=== PATIENT | male | born 1990 | race Caucasian/White ===

== ENCOUNTER → 2017-08-10 | Outpatient (CLI) | payer OTHER ==
--- NOTE | 2017-08-10 11:32 | FL ---
ESOPHOGRAM. HISTORY: Dysphagia Esophagram was performed per the air contrast technique. The patient swallowed barium and effervesce nt crystals without difficulty or delay. Esophageal peristalsis and motility appear to be within normal limits. There is no evidence for filling defect, mass or diverticulum. Very small reducible hiatal hernia noted. Subsequently single contrast cervical esophagram was performed which fails demonstrate evidence for a spiration penetration or mass. IMPRESSION: Very small reducible hiatal hernia noted.
== END | disposition home or self-care (01) ==
LOC: RADFLMAIN 08:19
PROVIDERS: ATTEND Family Medicine
DX: K44.9 Diaphragmatic hernia without obstruction or gangrene (principal)
CPT/HCPCS: 74220

== ENCOUNTER 2017-11-21 22:01 | Emergency (ER) | payer OTHER ==
[2017-11-21] MEDS ORDERED: METOCLOPRAMIDE 5 MG/ML 2 ML VIAL IVP STA (22:32)
[2017-11-21] MEDS ORDERED: GLUCAGON 1 MG/ML VIAL IVP STA (22:32)
--- NOTE | 2017-11-21 22:44 | ED ---
ENT HPI - General Source: patient, RN notes reviewed Mode of arrival: ambulatory Limitations: no limitations <Jessica Sanchez - Last Filed: 11/22/17 00:43> <Aida Ness - Last Filed: 11/22/17 03:28> - General Chief complaint: ENT Stated complaint: throat problems/hernia/trouble swallowing Time Seen by Provider: 11/21/17 22:24 - History of Present Illness Initial comments: This is a 27-year-old male who presents to the emergency department with chief complaint of esophageal food impaction. Patient states that 2-1/2 hours ago he was eating pork chops. He states that the meat became lodged in his esophagus. Patient states that this has happened multiple times since the age of 13. He states that he has been dry heaving and did bring up half of the pork chop. He denies fevers or chills, chest pain or shortness of breath, abdominal pain, diarrhea. (Jessica Sanchez) - Related Data Home Medications Medication Instructions Recorded Confirmed Albuterol Sulfate [Ventolin HFA] 2 puff INHALATION RT-QID PRN 04/14/14 11/21/17 Mometasone/Formoterol [Dulera 100 2 puff INHALATION RT-BID 06/12/15 11/21/17 Mcg/5 Mcg Inhaler] Baclofen 10 mg PO BID PRN 11/21/17 11/21/17 Cetirizine HCl [Zyrtec] 10 mg PO DAILY PRN 11/21/17 11/21/17 Loratadine [Claritin] 10 mg PO DAILY 11/21/17 11/21/17 Ranitidine HCl 300 mg PO DAILY 11/21/17 11/21/17 Allergies Allergy/AdvReac Type Severity Reaction Status Date / Time promethazine HCl Allergy Unknown Verified 11/21/17 22:33 [From Phenergan] Review of Systems ROS Other: All systems not noted in ROS Statement are negative. <Jessica Sanchez - Last Filed: 11/22/17 00:43> ROS Other: All systems not noted in ROS Statement are negative. <Aida Ness - Last Filed: 11/22/17 03:28> ROS Statement: Those systems with pertinent positive or pertinent negative responses have been documented in the HPI. Past Medical History Past Medical History: Asthma History of Any Multi-Drug Resistant Organisms: None Reported Past Surgical History: No Surgical Hx Reported Additional Past Surgical History / Comment(s): endoscopy Past Psychological History: Depression Smoking Status: Current some day smoker Past Alcohol Use History: Occasional Past Drug Use History: None Reported <LauraJessica eldridge - Last Filed: 11/22/17 00:43> General Exam Limitations: no limitations <Jessica Sanchez - Last Filed: 11/22/17 00:43> <Aida Ness - Last Filed: 11/22/17 03:28> - General Exam Comments Initial Comments: General: Awake and alert, well-developed; in no apparent distress. Sitting comfortably on ED stretcher playing on his cell phone. HEENT: Head atraumatic, normocephalic. Pupils are equal, round and reactive to light. Extraocular movements intact. Oropharynx moist without erythema or exudate. Neck: Supple. Normal ROM. Cardiovascular: Regular rate and rhythm. No murmurs, rubs or gallops. Chest symmetrical. Respiratory: Lungs clear to auscultation bilaterally. No wheezes, rales or rhonchi. Normal respiratory effort with no use of accessory muscles. Abdomen: Soft, non-tender, non-distended. No rigidity, rebound or guarding. Normal bowel sounds in all 4 quadrants. Musculoskeletal: Normal ROM, no tenderness bilateral upper and lower extremities. Skin: [place], warm and dry without rashes or lesions. Neurological: Alert and oriented x3. CN II-XII grossly intact. Speech is fluent and answers are appropriate. No focal neuro deficits. Psychiatric: Normal mood and affect. No overt signs of depression or anxiety noted. (Jessica Sanchez) Course <Jessica Sanchez - Last Filed: 11/22/17 00:43> <Aida Ness - Last Filed: 11/22/17 03:28> Vital Signs 11/21/17 11/22/17 11/22/17 22:13 00:25 00:54 Temperature 98.5 F 97.9 F 98.6 F Pulse Rate 93 93 87 Respiratory 16 18 18 Rate Blood Pressure 147/94 138/73 149/90 O2 Sat by Pulse 99 98 97 Oximetry - Reevaluation(s) Reevaluation #1: Patient reevaluated at this time. He is sleeping comfortably on ED stretcher. Patient was awoken and he states that he has been unable to pass the food bolus. He was given Reglan and glucagon. [place] at bedside contains liquid and pieces of meat. Patient states that he feels the karla kathy get down to mid esophagus, it foams, and he throws it back up. 11/21/17 23:33 (Jessica Sanchez) Medical Decision Making <Jessica Sanchez - Last Filed: 11/22/17 00:43> <Aida Ness - Last Filed: 11/22/17 03:28> - Medical Decision Making This is a 27-year-old male who presents to the emergency department with chief complaint of esophageal food impaction. Patient reports this has happened multiple times in the past and he has had upper scopes. He was eating porkchops this evening and a piece became lodged. Attempt at dislodgment by using Reglan and glucagon was attempted, however was unsuccessful. Patient is tolerating oral secretions. Case was discussed with attending physician, Dr. Ness who also evaluated the patient. She was in contact with director health, Dr. Wesley. Patient will be admitted to observation with plans for upper scope in the morning. Patient will be kept nothing by mouth. His vital signs are stable and he is in no acute distress. He is in agreement for admission. After admission orders were entered, patient reports that the food bolus has passed. He would like to be discharged home. He will be discharged home and is instructed to follow-up outpatient with doctor tomorrow. Patient is in agreement. He will be discharged home at this time. (Jessica Sanchez) I personally saw and evaluated the patient, patient with a history of food bolus in the past, reports foreign body sensation in his esophagus after eating a pork chop. Has vomited since that time but did not vomit up the pork chop. Patient is spitting up his oral secretions, attempted treatment with glucagon Reglan and karla kathy area patient was reevaluated he was laying flat in the bed and reported persistent foreign body sensation and no improvement after drinking karla kathy. I advised the patient that he needs to sit up straight and attempt drinking karla kathy again as he appeared quite comfortable. Patient declined to attempt this. Patient care was discussed with GI companion caregiver Dr. Wesley who recommended placing the patient in observation for possible endoscopy in the morning. Approximately one hour after placing the observation orders the patient's significant other came to the ER [place] state that the patient feels as though everything is pasties able to now drinks karla kathy and would like to go home. Follow-up instructions were given to the patient was advised that it's very important that he follow up with GI outpatient for further management. All questions pertaining the care answered the best my ability patient discharged home. (Aida Ness) Disposition Is patient prescribed a controlled substance at d/c from ED?: No Time of Disposition: 00:20 <Jessica Sanchez - Last Filed: 11/22/17 00:43> <Aida Ness - Last Filed: 11/22/17 03:28> Clinical Impression: Food impaction of esophagus Disposition: HOME SELF-CARE Condition: Good Instructions: Food Impaction (ED) Additional Instructions: Please follow-up with Dr. Wesley in the morning. Please follow up with primary care provider within 1-2 days. Return to emergency department if symptoms should worsen or any concerns arise. Referrals: Maliha Jacobson DO [Primary Care Provider] - 1-2 days Julia Wesley MD [STAFF PHYSICIAN] - 1-2 days
[2017-11-22] MEDS ORDERED: SODIUM CHLORIDE 0.9% 1,000 ML IV SCH (00:15)
[2017-11-22 00:26] VITALS: RESP 18
[2017-11-22 00:55] VITALS: BP 149/90; PULSE 87; TEMP 98.6
== END 2017-11-22 00:54 | disposition home or self-care (01) ==
LOC: EC 22:01
DX: K56.49 Other impaction of intestine (principal); J45.909 Unspecified asthma, uncomplicated; F17.200 Nicotine dependence, unspecified, uncomplicated; Z79.899 Other long term (current) drug therapy; Z88.8 Allergy status to other drugs, medicaments and biological substances
CPT/HCPCS: 99283; 96374; 96375; J1610; J2765

== ENCOUNTER 2018-01-27 13:09 | Day surgery (SDC) | payer OTHER ==
[2018-01-25 16:55] VITALS: BMI 25.1
[~2018-01-27 13:09] MED LIST: LACTATED RINGERS 1,000 ML IV SCH; LIDOCAINE 1% 20 ML VIAL (10MG/ML) FOR IV START INTRADERMA PRN; MIDAZOLAM 2 MG/2 ML VIAL IV PRN
[2018-01-27 13:46] VITALS: RESP 16; TEMP 97.4
[2018-01-27] MEDS ORDERED: PROPOFOL 10 MG/ML 20 ML VIAL IV ONE (14:42)
[2018-01-27] MEDS ORDERED: LIDOCAINE 1% INJ 10MG/ML (20 ML MDV) ONE (14:42)
--- NOTE | 2018-01-27 14:56 | P.PCN ---
Date of Procedure: 01/27/18 Procedure(s) Performed: BRIEF HISTORY: Patient is a 27-year-old, pleasant, white male, scheduled for an upper endoscopy as a part of evaluation of intermittent dysphagia to solids for the last 6 months duration. Often has solid food dysphagia. He tried Prilosec for a few weeks with no improvement in his symptoms. His and scheduled for an upper endoscopy with possible dilation PROCEDURE PERFORMED: Esophagogastroduodenoscopy with biopsy and dilation. PREOPERATIVE DIAGNOSIS: Intermittent dysphagia to solids. IV sedation per anesthesia. PROCEDURE: After informed consent was obtained, the patient was brought into the endoscopy unit. IV sedation was administered by Anesthesia under continuous monitoring. Initially the Olympus GIF-140 video endoscope was inserted into the mouth. Esophagus intubated without any difficulty. It was gradually advanced into the stomach and duodenum and carefully examined. The bulb and the second part of the duodenum appeared normal. The scope at this time was withdrawn to the stomach, adequately insufflated with air, and upon careful examination, mucosa of the antrum, body, cardia and the fundus appeared normal. The scope was then withdrawn into the esophagus. The GE junction was located at 39 cm from the incisors. Small hiatal hernia noted. At the GE junction there was a distal esophageal stricture identified which was dilated with 13 and 13.5 mm TTS balloon for 90 seconds. Also there was mucosal fold thickening in the distal esophagus with superficial rings consistent with years of age esophagitis and multiple biopsies were done from this area. The rest of the esophagus appeared normal. There were no erosions or ulcerations seen and the patient tolerated the procedure well. IMPRESSION: 1. Distal esophageal stricture status post balloon dilation using 12 and 13.5 mm TTS balloon as described above. 2. Multiple superficial mucosal rings with thickened esophageal folds in the mid and distal esophagus status post biopsy to evaluate for eosinophilic esophagitis. RECOMMENDATIONS: The findings of this examination were discussed with the patient as well as his family. He was advised to follow with the biopsy results. He'll remain on clear liquid diet today. He'll be seen in office in 6 weeks..
[2018-01-27 15:18] VITALS: BP 111/73; PULSE 66
== END 2018-01-27 15:42 | disposition home or self-care (01) ==
LOC: ORWHC2ENDO 13:09
PROVIDERS: ATTEND Internal Medicine Gastroenterology
DX: K21.0 Gastro-esophageal reflux disease with esophagitis (principal); K22.2 Esophageal obstruction; K44.9 Diaphragmatic hernia without obstruction or gangrene; M41.9 Scoliosis, unspecified; J45.909 Unspecified asthma, uncomplicated; Z87.891 Personal history of nicotine dependence; Z79.899 Other long term (current) drug therapy; Z79.51 Long term (current) use of inhaled steroids
CPT/HCPCS: 88305; 43249; 43239; J2001; J2704; C1726

== ENCOUNTER 2019-08-16 09:34 | Day surgery (SDC) | payer OTHER ==
[2019-08-14 13:27] VITALS: BMI 26.3
[~2019-08-16 09:34] MED LIST changes: +LIDOCAINE 1% (10MG/ML) FOR IV START INTRADERMA PRN; -LIDOCAINE 1% 20 ML VIAL (10MG/ML) FOR IV START INTRADERMA PRN; -MIDAZOLAM 2 MG/2 ML VIAL IV PRN
[2019-08-16 10:00] VITALS: TEMP 97.1
[2019-08-16] MEDS ORDERED: LIDOCAINE 1% INJ 10MG/ML (20 ML MDV) ONE (11:02)
[2019-08-16] MEDS ORDERED: PROPOFOL 10 MG/ML 20 ML VIAL IV ONE (11:02)
--- NOTE | 2019-08-16 11:17 | P.PCN ---
Date of Procedure: 08/16/19 Procedure(s) Performed: BRIEF HISTORY: Patient is a 29-year-old, pleasant, white male scheduled for an upper endoscopy for evaluation of progressive dysphagia to solids for the last 7 months duration. He had an upper endoscopy with dilation performed in January 2080 and was noted to have a distal esophageal stricture and thickened esophageal folds and biopsies revealed reflux esophagitis. He took Prilosec for a few months and then discontinued.. PROCEDURE PERFORMED: Esophagogastroduodenoscopy with biopsy and dilation. PREOPERATIVE DIAGNOSIS: Progressive dysphagia to solids of 6 months duration. IV sedation per anesthesia. PROCEDURE: After informed consent was obtained, the patient was brought into the endoscopy unit. IV sedation was administered by Anesthesia under continuous monitoring. Initially the Olympus GIF-140 video endoscope was inserted into the mouth. Esophagus intubated without any difficulty. It was gradually advanced into the stomach and duodenum and carefully examined. The bulb and the second part of the duodenum appeared normal. The scope at this time was withdrawn to the stomach, adequately insufflated with air, and upon careful examination, mucosa of the antrum, body, cardia and the fundus appeared normal. The scope was then withdrawn into the esophagus. The GE junction was located at41 cm from the incisors. There was a distal esophageal stricture identified which was dilated with 12 mm AND 13.5 mm TTS balloon in sequential fashion for 45 seconds. There is 2 superficial erosions noted at the GE junction consistent with LA grade B reflux esophagitis. Also there was mucosal thickening of the distal and mid esophageal folds which were biopsied. Rest of the esophagus appeared normal and the patient tolerated the procedure well. IMPRESSION: 1. Distal esophageal stricture status post balloon dilation using 12 and 13.5 mm TTS balloon as described above. 2.. Esophageal folds with erosions in the distal esophagus suspicious for eosinophilic esophagitis status post multiple biopsies. RECOMMENDATIONS: The findings of this examination were discussed with the patient as well as his family. He was advised to be on a clear liquid diet for lunch today. He will follow with the biopsy results. He was started back on Prilosec 20 mg twice daily and he'll be seen in office in 4 weeks..
[2019-08-16 11:20] VITALS: RESP 16
[2019-08-16 11:35] VITALS: BP 128/82; PULSE 70
== END 2019-08-16 11:55 | disposition home or self-care (01) ==
LOC: ORWHC2ENDO 09:34
PROVIDERS: ATTEND Internal Medicine Gastroenterology
DX: K22.2 Esophageal obstruction (principal); K21.0 Gastro-esophageal reflux disease with esophagitis; K22.10 Ulcer of esophagus without bleeding; J45.909 Unspecified asthma, uncomplicated; G43.909 Migraine, unspecified, not intractable, without status migrainosus; Z88.8 Allergy status to other drugs, medicaments and biological substances; Z79.899 Other long term (current) drug therapy
CPT/HCPCS: 88305; 43239; 43249; J2001; J2704; C1726

== ENCOUNTER → 2020-09-12 | Outpatient (CLI) | payer OTHER ==
--- NOTE | 2020-09-12 09:28 | NM ---
EXAMINATION TYPE: NM hepatobiliary w EF DATE OF EXAM: 09/12/2020 COMPARISON: NONE HISTORY: R14.0 Bloating; K20 Esophagitis TECHNIQUE: After the intravenous administration of 5.0 mCi Tc 99m Mebrofenin hepatobiliary scintigrap hy is performed. Immediate images post injection. FINDINGS: There is satisfactory initial accumulation of tracer by the liver. The gallbladder is visualized wit hin 12 minutes. The small bowel activity is noted within 14 minutes. At one hour 8 ounces of oral e nsure plus is given to mimic CCK and gallbladder ejection fraction is calculated at 52 %, in the norm al range. Therefore there is no scintigraphic evidence of cystic or common bile duct obstruction to suggest acute cholecystitis or gallbladder dyskinesia. IMPRESSION: Exam is within normal limits.
== END | disposition home or self-care (01) ==
LOC: RADNMMAIN 06:58
PROVIDERS: ATTEND Family Medicine
DX: R14.0 Abdominal distension (gaseous) (principal); K20.90 Esophagitis, unspecified without bleeding
CPT/HCPCS: 78226; A9537

== ENCOUNTER → 2021-07-17 | Outpatient (CLI) | payer OTHER ==
[2021-07-17 22:24] LABS: Basophils # (A) 0.06 X 10*3/uL (0.00-0.10); Basophils % (A) 0.9 %; Eosinophils # (A) 0.33 X 10*3/uL (0.04-0.35); Eosinophils % (A) 4.7 %; HCT 46.8 % (39.6-50.0); HGB 15.1 g/dL (13.0-17.0); Immature Grans, Automated 0.1 %; Lymphocytes # (A) 2.56 X 10*3/uL (0.90-5.00); Lymphocytes % (A) 36.4 %; MCH 30.2 pg (27.0-32.0); MCHC 32.3 g/dL (32.0-37.0); MCV 93.6 fL (80.0-97.0); Mean Platelet Volume 10.9 fL (9.5-12.2); Monocytes # (A) 0.56 X 10*3/uL (0.20-1.00); NRBC Per 100 WBC 0 /100 WBCS (0.0-0.0); Neutrophils # (A) 3.52 X 10*3/uL (1.80-7.70); Neutrophils % (A) 49.9 %; Platelet Count 321 X 10*3/uL (140-440); RDW 11.9 % (11.5-14.5); WBC 7.04 X 10*3/uL (4.50-10.00)
== END | disposition home or self-care (01) ==
LOC: LABWHC1 14:33
PROVIDERS: ATTEND Internal Medicine
DX: J45.50 Severe persistent asthma, uncomplicated (principal)
CPT/HCPCS: 36415; 82785; 85025

== ENCOUNTER 2022-01-18 12:08 | Emergency (ER) | payer OTHER ==
--- NOTE | 2022-01-18 13:07 | US ---
EXAMINATION TYPE: US scrotum with doppler. Grayscale and color Doppler Duplex imaging performed of manjeet campuzano scrotum. DATE OF EXAM: 01/18/2022 COMPARISON: NONE CLINICAL HISTORY: scrotal pain swelling tender. Pt states pain to left testicle EXAM MEASUREMENTS: TESTICLES: Right Testicle: 4.6 x 2.5 x 3.5 cm Left Testicle: 5.0 x 2.3 x 3.1 cm EPIDIDYMIS HEAD: Right Epididymis: 1.1 cm Left Epididymis: 1.2 cm Doppler performed to assess for testicular vascularity; good bilateral color flow and waveforms are s een. There is no evidence of testicular torsion. Presence of hydroceles: No Presence of varicoceles: No Left scrotal soft tissue edema in area of pt's pain IMPRESSION: Left-sided scrotal edema without evidence for atelectasis. Correlate for cellulitis.
[2022-01-18] MEDS ORDERED: MORPHINE SULFATE 4 MG/ML SYRINGE IV STA (13:49)
[2022-01-18] MEDS ORDERED: cefTRIAXone IN SWFI 1,000 MG/10 ML SYRINGE IVP STA (13:49)
--- NOTE | 2022-01-18 13:55 | ED ---
General Adult HPI - General Chief complaint: Urogenital Stated complaint: swelling in testicle Time Seen by Provider: 01/18/22 13:24 Source: patient Mode of arrival: ambulatory Limitations: no limitations - History of Present Illness Initial comments: Dictation was produced using Gist dictation software. please excuse any grammatical, word or spelling errors. Chief Complaint: 31-year-old male presents emergency department for scrotal pain History of Present Illness: Patient is 31-year-old male in no significant comorbidities presents emergency department for worsening scrotal pain and scrotal rash. 5 days ago symptoms began as a small area of redness and pain over his left scrotum. Over the next 5 days symptoms acutely worsen. He was seen at a local clinic and was prescribed Bactrim along with an outpatient ultrasound of the scrotum. Patient states that he has had two and a half days of antibiotics with no improvement of symptoms. Patient states that his pain and symptoms are getting worse she does complain of some chills but denies any fevers. The ROS documented in this emergency department record has been reviewed and confirmed by me. Those systems with pertinent positive or negative responses have been documented in the HPI. All other systems are other negative and/or noncontributory. PHYSICAL EXAM: General Impression: Alert and oriented x3, not in acute distress HEENT: Normocephalic atraumatic, extra-ocular movements intact, pupils equal and reactive to light bilaterally, mucous membranes moist. Cardiovascular: Heart regular rate and rhythm Chest: Able to complete full sentences, no retractions, no tachypnea Musculoskeletal: Pulses present and equal in all extremities, no peripheral edema Motor: no focal deficits noted Neurological: CN II-XII grossly intact, no focal motor or sensory deficits noted Skin: Intact with no visualized rashes Psych: Normal affect and mood : There is significant swelling and erythema over the left scrotum ED course: 31-year-old male presents to the emergency department with clinical presentation consistent with scrotal cellulitis. Vital signs upon arrival are within acceptable limits. Ultrasound of the scrotum was ordered by triage nurse per HPI protocol. There is left-sided scrotal edema without evidence for scrotal abnormalities. Nursing notes and chart review was performed Patient does report constitutional symptoms. Blood work will be drawn for evaluation of possible fasciitis. Laboratory evaluation obtained. Mild leukocytosis 13.7. ESR slightly elevated at 40. CRP slightly elevated 3.7. Urinalysis is unremarkable. Pleuritic score is 0. Patient's low risk for severe infection. Patient told to continue taking his Bactrim. Patient given Keflex. Advised follow-up with primary care doctor. Patient given return precautions. Patient understandable and agreeable. Patient discharged. Critical Care: no Critical Care time: n/a - Related Data Home Medications Medication Instructions Recorded Confirmed Albuterol Sulfate [Ventolin HFA] 2 puff INHALATION RT-QID PRN 04/14/14 08/14/19 Baclofen 10 mg PO BID PRN 11/21/17 08/14/19 Loratadine [Claritin] 10 mg PO DAILY PRN 11/21/17 08/14/19 Tiotropium [place] [Spiriva 1 spray INHALATION BID 08/14/19 08/14/19 Respimat] traMADol HCL [Ultram] 50 mg PO Q4HR PRN 08/14/19 08/14/19 Previous Rx's Medication Instructions Recorded Cephalexin [Keflex] 500 mg PO Q6HR 5 Days #20 cap 01/18/22 HYDROcodone/APAP 5-325MG [[place] 1 tab PO Q6HR PRN 3 Days #12 tab 01/18/22 5-325] Allergies Allergy/AdvReac Type Severity Reaction Status Date / Time promethazine HCl Allergy DISORIENTAT Verified 08/14/19 13:02 [From Phenergan] ION Review of Systems ROS Statement: Those systems with pertinent positive or pertinent negative responses have been documented in the HPI. ROS Other: All systems not noted in ROS Statement are negative. Past Medical History Past Medical History: Asthma Additional Past Medical History / Comment(s): MIGRAINE HEADACHE , FOOD GETS STUCK IN THROAT , KIDNEY STONES History of Any Multi-Drug Resistant Organisms: None Reported Past Surgical History: No Surgical Hx Reported Additional Past Surgical History / Comment(s): EGD X2 Past Anesthesia/Blood Transfusion Reactions: No Reported Reaction Past Psychological History: No Psychological Hx Reported Past Alcohol Use History: Rare Past Drug Use History: None Reported General Exam Limitations: no limitations Course Vital Signs 01/18/22 12:29 Temperature 98.8 F Pulse Rate 92 Respiratory 16 Rate Blood Pressure 126/88 O2 Sat by Pulse 96 Oximetry Medical Decision Making - Lab Data Result diagrams: 01/18/22 13:51 01/18/22 13:51 Lab Results 01/18/22 01/18/22 01/18/22 Range/Units 13:40 13:51 13:51 WBC 13.7 H (3.8-10.6) k/uL RBC 5.06 (4.30-5.90) m/uL Hgb 16.0 (13.0-17.5) gm/dL Hct 46.7 (39.0-53.0) % MCV 92.2 (80.0-100.0) fL MCH 31.7 (25.0-35.0) pg MCHC 34.3 (31.0-37.0) g/dL RDW 12.1 (11.5-15.5) % Plt Count 287 (150-450) k/uL MPV 7.9 Neutrophils % 76 % Lymphocytes % 15 % Monocytes % 4 % Eosinophils % 2 % Basophils % 0 % Neutrophils # 10.4 H (1.3-7.7) k/uL Lymphocytes # 2.1 (1.0-4.8) k/uL Monocytes # 0.6 (0-1.0) k/uL Eosinophils # 0.3 (0-0.7) k/uL Basophils # 0.1 (0-0.2) k/uL ESR 40 H (0-15) mm/hr Sodium 139 (137-145) mmol/L Potassium 4.7 (3.5-5.1) mmol/L Chloride 104 (98-107) mmol/L Carbon Dioxide 24 (22-30) mmol/L Anion Gap 11 mmol/L BUN 14 (9-20) mg/dL Creatinine 1.19 (0.66-1.25) mg/dL Est GFR (CKD-EPI)AfAm >90 (>60 ml/min/1.73 sqM) Est GFR (CKD-EPI)NonAf 82 (>60 ml/min/1.73 sqM) Glucose 94 (74-99) mg/dL Calcium 9.4 (8.4-10.2) mg/dL C-Reactive Protein 3.7 H (<1.0) mg/dL Urine Color Yellow Urine Appearance Clear (Clear) Urine pH 6.0 (5.0-8.0) Ur Specific [place] 1.036 H (1.001-1.035) Urine Protein 3+ H (Negative) Urine Glucose (UA) Negative (Negative) Urine Ketones Negative (Negative) Urine Blood Negative (Negative) Urine Nitrite Negative (Negative) Urine Bilirubin Negative (Negative) Urine Urobilinogen 2.0 (<2.0) mg/dL Ur Leukocyte Esterase Negative (Negative) Urine RBC 5 (0-5) /hpf Urine WBC 2 (0-5) /hpf Hyaline Casts 1 (0-2) /lpf Urine Mucus Occasional H (None) /hpf Disposition Clinical Impression: Cellulitis of scrotum Disposition: HOME SELF-CARE Condition: Fair Instructions (If sedation given, give patient instructions): Cellulitis (ED) Prescriptions: Cephalexin [Keflex] 500 mg PO Q6HR 5 Days #20 cap HYDROcodone/APAP 5-325MG [[place] 5-325] 1 tab PO Q6HR PRN 3 Days #12 tab PRN Reason: Severe Pain Is patient prescribed a controlled substance at d/c from ED?: Yes If prescribed controlled substance>3 days was MAPS reviewed?: Prescribed <3 Days Referrals: Maliha Jacobson DO [Primary Care Provider] - 1-2 days Time of Disposition: 15:42
[2022-01-18 14:03] LABS: Appearance,Urine Clear (Clear); Bilirubin,Urine Negative (Negative); Blood,Urine Negative (Negative); Color,Urine Yellow; Glucose,Urine (UA) Negative (Negative); Hyaline Casts,Urine 1 /lpf (0-2); Ketones,Urine Negative (Negative); Leukocyte Esterase,Urine Negative (Negative); Mucus,Urine Occasional /hpf; Nitrite,Urine Negative (Negative); Protein,Urine 3+ (Negative); RBC,Urine 5 /hpf (0-5); Specific Gravity,Urine 1.036 (1.001-1.035); WBC,Urine 2 /hpf (0-5)
[2022-01-18 14:07] LABS: Basophils # (A) 0.1 k/uL (0-0.2); Basophils % (A) 0 %; Eosinophils # (A) 0.3 k/uL (0-0.7); Eosinophils % (A) 2 %; HCT 46.7 % (39.0-53.0); Lymphocytes # (A) 2.1 k/uL (1.0-4.8); Lymphocytes % (A) 15 %; MCH 31.7 pg (25.0-35.0); MCHC 34.3 g/dL (31.0-37.0); MCV 92.2 fL (80.0-100.0); Mean Platelet Volume 7.9; Monocytes # (A) 0.6 k/uL (0-1.0); Monocytes % (A) 4 %; Neutrophils # (A) 10.4 k/uL (1.3-7.7); Neutrophils % (A) 76 %; Platelet Count 287 k/uL (150-450); RBC 5.06 m/uL (4.30-5.90); RDW 12.1 % (11.5-15.5); WBC 13.7 k/uL (3.8-10.6)
[2022-01-18 14:39] LABS: Glucose 94 mg/dL (74-99)
[2022-01-18 14:43] LABS: African American GFR (CKD) >90 (>60 ml/min/1.73 sqM); Anion Gap 11 mmol/L; Blood Urea Nitrogen 14 mg/dL (9-20); C Reactive Protein 3.7 mg/dL (<1.0); Calcium 9.4 mg/dL (8.4-10.2); Carbon Dioxide 24 mmol/L (22-30); Chloride 104 mmol/L (98-107); Non-African American GFR(CKD) 82 (>60 ml/min/1.73 sqM); Potassium 4.7 mmol/L (3.5-5.1); Sodium 139 mmol/L (137-145)
[2022-01-18 15:26] LABS: Erythrocyte Sedimentation Rate 40 mm/hr (0-15)
[2022-01-18 15:59] VITALS: BP 130/84; PULSE 95; RESP 18; TEMP 98.9
== END 2022-01-18 15:58 | disposition home or self-care (01) ==
LOC: EC 12:08
DX: N49.2 Inflammatory disorders of scrotum (principal); J45.909 Unspecified asthma, uncomplicated; Z79.899 Other long term (current) drug therapy; Z88.8 Allergy status to other drugs, medicaments and biological substances
CPT/HCPCS: 36415; 80048; 85652; 85025; 86140; 81001; 93975; 76870; 99284; 96374; 96375; J2270; J0696

== ENCOUNTER 2024-04-27 23:48 | Emergency (ER) | payer OTHER ==
[2024-04-27 23:53] VITALS: TEMP 97.8
[2024-04-28] MEDS ORDERED: RX INFO: IV CONTRAST WAS GIVEN 1 EACH MISC MISCELLANE PRN (00:43)
[2024-04-28] MEDS: TRANEXAMIC ACID 1,000 MG/10 ML VIAL MISCELLANE ONE (00:50)
[2024-04-28] MEDS: ONDANSETRON 4 MG/2 ML VIAL IVP STA (01:10)
[2024-04-28 01:12] LABS: Basophils # (A) 0.1 k/uL (0-0.2); Basophils % (A) 1 %; Eosinophils # (A) 0.6 k/uL (0-0.7); Eosinophils % (A) 5 %; HCT 45.4 % (39.0-53.0); HGB 15.5 gm/dL (13.0-17.5); Lymphocytes # (A) 2.7 k/uL (1.0-4.8); Lymphocytes % (A) 26 %; MCH 31.3 pg (25.0-35.0); MCHC 34.1 g/dL (31.0-37.0); MCV 91.7 fL (80.0-100.0); Mean Platelet Volume 7.2; Monocytes # (A) 0.4 k/uL (0-1.0); Monocytes % (A) 4 %; Neutrophils # (A) 6.7 k/uL (1.3-7.7); Neutrophils % (A) 63 %; Platelet Count 334 k/uL (150-450); RBC 4.95 m/uL (4.30-5.90); RDW 12.3 % (11.5-15.5); WBC 10.5 k/uL (3.8-10.6)
[2024-04-28] MEDS: MORPHINE SULFATE 4 MG/ML SYRINGE IVP STA (01:12)
[2024-04-28 01:22] LABS: Partial Thromboplastin Time 23.6 sec (22.0-30.0); Prothrombin Time 10.9 sec (10.0-12.5)
[2024-04-28 01:30] LABS: ALT 24 U/L (4-49); AST 26 U/L (17-59); African American GFR (CKD) >90 (>60 ml/min/1.73 sqM); Albumin 4.6 g/dL (3.5-5.0); Alkaline Phosphatase 86 U/L (38-126); Anion Gap 11 mmol/L; Blood Urea Nitrogen 8 mg/dL (9-20); Calcium 9.2 mg/dL (8.4-10.2); Carbon Dioxide 26 mmol/L (22-30); Chloride 103 mmol/L (98-107); Glucose 99 mg/dL (74-99); Non-African American GFR(CKD) >90 (>60 ml/min/1.73 sqM); Potassium 3.6 mmol/L (3.5-5.1); Sodium 140 mmol/L (137-145); Total Bilirubin 0.9 mg/dL (0.2-1.3); Total Protein 7.9 g/dL (6.3-8.2)
--- NOTE | 2024-04-28 01:50 | ED ---
General Adult HPI - General Chief complaint: ENT Stated complaint: throast pain Time Seen by Provider: 04/28/24 00:24 Source: patient Mode of arrival: ambulatory Limitations: no limitations - History of Present Illness Initial comments: Patient is a 34-year-old gentleman the past medical history of reflux esophagitis and esophageal stricture presenting today for hematemesis and foreign body impaction. Patient states that he is allergic "to a lot of things" and they get stuck in his throat frequently. Tonight he was eating Ramen with noodles and beef and steak and after swallowing a piece of steak he began to feel get was stuck in his throat and vomited blood. States that he filled the sink twice with bright red blood prior to arrival. By time of arrival in the ER the bleeding has slowed significantly and he is now only spitting up clear bile. He did recently have his wisdom teeth removed 2 days ago but does not feel like the bleeding is coming from his wisdom teeth. He is not on blood thinners and denies any history of easy bleeding or bruising disorders. He denies difficulty in breathing lightheadedness or dizziness. Endorses associated chills. He has required esophageal dilation in the past due to esophageal strictures. Denies swallowing any sharp objects. - Related Data Home Medications Medication Instructions Recorded Confirmed Albuterol Sulfate [Ventolin HFA] 2 puff INHALATION RT-QID PRN 04/14/14 08/14/19 Baclofen 10 mg PO BID PRN 11/21/17 08/14/19 Loratadine [Claritin] 10 mg PO DAILY PRN 11/21/17 08/14/19 Tiotropium [place] [Spiriva 1 spray INHALATION BID 08/14/19 08/14/19 Respimat] traMADol HCL [Ultram] 50 mg PO Q4HR PRN 08/14/19 08/14/19 Previous Rx's Medication Instructions Recorded Cephalexin [Keflex] 500 mg PO Q6HR 5 Days #20 cap 01/18/22 HYDROcodone/APAP 5-325MG [[place]utter 1 tab PO Q6HR PRN 3 Days #12 tab 01/18/22 5-325] Allergies Allergy/AdvReac Type Severity Reaction Status Date / Time promethazine HCl Allergy DISORIENTAT Verified 04/27/24 23:53 [From Phenergan] ION Review of Systems ROS Statement: Those systems with pertinent positive or pertinent negative responses have been documented in the HPI. ROS Other: All systems not noted in ROS Statement are negative. Past Medical History Past Medical History: Asthma Additional Past Medical History / Comment(s): MIGRAINE HEADACHE , FOOD GETS STUCK IN THROAT , KIDNEY STONES History of Any Multi-Drug Resistant Organisms: None Reported Past Surgical History: No Surgical Hx Reported Additional Past Surgical History / Comment(s): EGD X2 Past Anesthesia/Blood Transfusion Reactions: No Reported Reaction Past Psychological History: Depression, PTSD Smoking Status: Former smoker Past Alcohol Use History: None Reported Past Drug Use History: None Reported General Exam - General Exam Comments Initial Comments: PE: CONSTITUTIONAL: No apparent distress, overall well-appearing, sitting up in bed resting comfortably SKIN: Warm, dry, no jaundice, hives or petechiae EYES: Pupils are equally round, extraocular movements intact without nystagmus, clear conjunctiva, non-icteric sclera HENT: Normocephalic, atraumatic, moist mucus membranes, oropharynx clear without exudates, visualized sites where wisdom teeth removed no active bleeding or clots noted here, on visualization of the posterior oropharynx I see no evidence of active bleeding NECK: , Full range of motion, normal appearance, no lymphadenopathy, palpable areas of fluctuance, no rapidly expanding hematoma or crepitus PULMONARY: Clear to auscultation without wheezes, rhonchi, or rales, normal excursion, no accessory muscle use and no stridor CARDIOVASCULAR: Regular rate, rhythm, normal S1 and S2. No appreciated murmurs, rubs or gallops. Strong radial pulses with intact distal perfusion. No lower extremity edema GASTROINTESTINAL: Soft, active bowel sounds throughout, non-tender, non- distended, no palpable masses, no rebound or guarding. No hepatosplenomegaly MUSCULOSKELETAL: Extremities have no gross deformity NEUROLOGIC:_a/o x 3, GCS 15, normal mentation and speech. Moves all extremities x 4 without motor or sensory deficit PSYCHIATRIC:_normal mood and affect, thought process is clear and linear Limitations: no limitations Course Vital Signs 04/27/24 04/28/24 04/28/24 23:50 00:54 01:10 Temperature 97.8 F Pulse Rate 94 95 92 Respiratory 18 Rate Blood Pressure 144/115 O2 Sat by Pulse 97 Oximetry 04/28/24 05:37 Temperature Pulse Rate 80 Respiratory 16 Rate Blood Pressure 147/94 O2 Sat by Pulse 100 Oximetry Medical Decision Making - Medical Decision Making Was pt. sent in by a medical professional or institution (, PA, PROJECT CONSTRUCTION ASSISTANT MANAGER, urgent care, hospital, or shelter...) When possible be specific @ -No Did you speak to anyone other than the patient for history (EMS, parent, family, police, friend...)? What history was obtained from this source @ -No Did you review nursing and triage notes (agree or disagree)? Why? @ -I reviewed nursing and triage notes Were old charts reviewed (outside hosp., previous admission, EMS record, old EKG, old radiological studies, urgent care reports/EKG's, shelter records)? Report findings @ -Medical records reviewed-Reviewed procedure note from 08/15/2020 patient an upper endoscopy due to progressive dysphagia, impression from that endoscopy with dilation showed distal esophageal strictures status post balloon dilation, esophageal folds with erosions in the distal esophagus suspicious for eosinophilic esophagitis status post multiple biopsies Differential Diagnosis (chest pain, altered mental status, abdominal pain women, abdominal pain men, vaginal bleeding, weakness, fever, dyspnea, syncope, headache, dizziness, GI bleed, back pain, seizure, CVA, palpatations, mental health, musculoskeletal)? @ -[Differential diagnosis remains broad however top considerations include impacted esophageal food bolus, Boerhaave syndrome, Fawn-Nolan tear, esophageal stricture, GERD, peptic ulcer disease, ruptured ulcer, postop bleeding from wisdom tooth removal, this is not an inclusive list EKG interpreted by me (3pts min.). @ -As above X-rays interpreted by me (1pt min.). @ -None done CT interpreted by me (1pt min.). @I personally reviewed CT scan soft tissue neck and chest I see no active contrast extravasation indicating active bleeding, esophagus does appear to have a stricture U/S interpreted by me (1pt. min.). @ -None done What testing was considered but not performed or refused? (CT, X-rays, U/S, labs)? Why? @ -None What meds were considered but not given or refused? Why? Glucagon, sublingual nitro and Valium however patient declined his medications stating they have not worked him in the past Did you discuss the management of the patient with other professionals (professionals i.e. , PA, PROJECT CONSTRUCTION ASSISTANT MANAGER, lab, RT, psych nurse, director social welfare, stewardesses teacher, teacher, ship's electronic warfare officer, showcase trimmer)? Give summary @ -No Was smoking cessation discussed for >3mins.? @ -No Was critical care preformed (if so, how long)? @ -No Were there social determinants of health that impacted care today? How? (Homelessness, low income, unemployed, alcoholism, drug addiction, transportation, low edu. Level, literacy, decrease access to med. care, alf, rehab)? @ -No Was there de-escalation of care discussed even if they declined (Discuss DNR or withdrawal of care, Hospice)? @ -No What co-morbidities impacted this encounter? (DM, HTN, Smoking, COPD, CAD, Cancer, CVA, ARF, Chemo, Hep., AIDS, mental health diagnosis, sleep apnea, morbid obesity)? @Eosinophilic esophagitis Was patient admitted / discharged? Hospital course, mention meds given and route, prescriptions, significant lab abnormalities, going to OR and other pertinent info. @Discharged-this is a 34-year-old gentleman with a past medical history of esoph agitis requiring multiple esophageal dilations presenting today for hematemesis and concern for esophageal foreign body after eating steak this evening. On my assessment patient is resting comfortably no acute distress. He does have a small Tupperware container with saliva mixed with clear red blood without clots. During my evaluation patient does spit out clear bile with scant pink streaks in it but no clots. He is in no acute distress and protecting his airway. Posterior oropharynx shows no erythema or active bleeding, there is no palpable fluctuance of the submandibular region, no crepitus to palpation of the neck or chest, no rapidly expanding hematoma. Lungs are clear to auscultation bilaterally. Discussed with patient plan for CT soft tissue neck and chest to assess for signs of active bleeding, I have a low suspicion for this at this time given improving bleeding, basic labs, IV fluids and pain control. I did consider administering glucagon however if suspected steak bolus is putting pressure on the area where patient was bleeding, do not want to aggravate area of bleeding. Pt agreeable with POC. I personally viewed CT scan I see no evidence of active contrast extravasation to indicate active bleeding. I discussed with patient plan for transfer to [facility] for GI consultation, patient requested we wait for read of CT scan prior to initiating transfer so that he could trial swallowing warm water which has helped him in the past to see if he can pass the food bolus and not have to be transferred. I did offer the patient glucagon, sublingual nitro and Valium however he states these have not worked for him in the past and politely declined these medications. Will await CT official read and allow pt to trial warm water prior to initiating transfer if CT scan does not show acute emergent or surgical process. Reviewed labs, no anemia, within normal limits, Patient states CT scan read by radiologist as wall thickening of the esophagus, correlate for need for upper GI endoscopy. CT soft tissue neck without acute process. On my reassessment gene ent has not spit up any further amount of blood. He was able to drink warm water and endorsed improvement of his symptoms and would rather be discharged home at this time. I discussed with the patient the importance of maintaining a soft diet for the next 1 to 2 days and following up with his freight loader and primary care provider regarding today's visit. In my medical judgment there is currently no evidence of an immediate life- threatening or surgical condition. Discharge is therefore indicated at this time. Undiagnosed new problem with uncertain prognosis? @ -No Drug Therapy requiring intensive monitoring for toxicity (Heparin, Nitro, Insulin, Cardizem)? @ -No Were any procedures done? @ -No Diagnosis/symptom? @esophageal foreign body, resolved, hematemesis Acute, or Chronic, or Acute on Chronic? acute Uncomplicated (without systemic symptoms) or Complicated (systemic symptoms)? @complicated Side effects of treatment? @ -No Exacerbation, Progression, or Severe Exacerbation? @ -No Poses a threat to life or bodily function? How? (Chest pain, [place], [place], pneumonia, PE, COPD, DKA, ARF, appy, cholecystitis, CVA, Diverticulitis, Homicidal, Suicidal, threat to staff... and all critical care pts) @ -No - Lab Data Result diagrams: 04/28/24 00:52 04/28/24 00:52 Lab Results 04/28/24 04/28/24 04/28/24 Range/Units 00:52 00:52 00:56 WBC 10.5 (3.8-10.6) k/uL RBC 4.95 (4.30-5.90) m/uL Hgb 15.5 (13.0-17.5) gm/dL Hct 45.4 (39.0-53.0) % MCV 91.7 (80.0-100.0) fL MCH 31.3 (25.0-35.0) pg MCHC 34.1 (31.0-37.0) g/dL RDW 12.3 (11.5-15.5) % Plt Count 334 (150-450) k/uL MPV 7.2 Neutrophils % 63 % Lymphocytes % 26 % Monocytes % 4 % Eosinophils % 5 % Basophils % 1 % Neutrophils # 6.7 (1.3-7.7) k/uL Lymphocytes # 2.7 (1.0-4.8) k/uL Monocytes # 0.4 (0-1.0) k/uL Eosinophils # 0.6 (0-0.7) k/uL Basophils # 0.1 (0-0.2) k/uL PT 10.9 (10.0-12.5) sec INR 1.0 (<1.2) APTT 23.6 (22.0-30.0) sec Sodium 140 (137-145) mmol/L Potassium 3.6 (3.5-5.1) mmol/L Chloride 103 (98-107) mmol/L Carbon Dioxide 26 (22-30) mmol/L Anion Gap 11 mmol/L BUN 8 L (9-20) mg/dL Creatinine 0.80 (0.66-1.25) mg/dL Est GFR (CKD-EPI)AfAm >90 (>60 ml/min/1.73 sqM) Est GFR (CKD-EPI)NonAf >90 (>60 ml/min/1.73 sqM) Glucose 99 (74-99) mg/dL Calcium 9.2 (8.4-10.2) mg/dL Total Bilirubin 0.9 (0.2-1.3) mg/dL AST 26 (17-59) U/L ALT 24 (4-49) U/L Alkaline Phosphatase 86 (38-126) U/L Total Protein 7.9 (6.3-8.2) g/dL Albumin 4.6 (3.5-5.0) g/dL Disposition Clinical Impression: Hematemesis, Esophagitis Disposition: HOME SELF-CARE Condition: Good Instructions (If sedation given, give patient instructions): Esophagitis (ED) Additional Instructions: Every disease is a spectrum and a small chance still exists that a serious condition could develop, for this reason, please monitor yourself closely for new, changing or worsening symptoms, any further episodes of coughing up or vomiting blood, lightheadedness dizziness or shortness of breath, return of difficulty swallowing, failure symptoms to resolve within the next 48 hours, fever, inability to tolerate/keep down fluids or your medications, inability to follow up with outpatient providers as instructed and should you experience these symptoms or should you have any further concerns for your wellbeing please return to the ED or call 911 immediately. Please maintain a clear liquid diet for the next 24 hours and then progress to soft foods after that. Please avoid any sharp edged, spicy, tomato-based or hard foods that could cause irritation to your esophagus. Please follow-up with your freight loader, Dr. Wesley in 48 hours regarding today's visit. PLEASE call your primary care physician as soon as possible to arrange / discuss plan for followup appointment. Appointment in the next 1-3 days is strongly encouraged if possible. PLEASE let us know here before you leave if there is anything further we can do to be of any assistance. Take care and feel Better! Is patient prescribed a controlled substance at d/c from ED?: No Referrals: Maliha Jacobson DO [Primary Care Provider] - 1-2 days
[2024-04-28] MEDS: PANTOPRAZOLE 40 MG/10 ML VIAL IVP STA (02:29)
--- NOTE | 2024-04-28 03:36 | CT ---
EXAM: CT Chest With Intravenous Contrast CLINICAL HISTORY: ITS.REASON CT Reason: swallowed steak, vomited blood, now FB sensation TECHNIQUE: Axial computed tomography images of the chest with intravenous contrast. CTDI is 9.3 mGy and DLP is 385.5 mGy-cm. This CT exam was performed using one or more of the following dose reduction techniques: automated exposure control, adjustment of the mA and/or kV according to patient size, and/or use of iterative reconstruction technique. COMPARISON: No relevant prior studies available. FINDINGS: Lungs: Unremarkable. No mass. No consolidation. Pleural space: Unremarkable. No pneumothorax. No significant effusion. Heart: Unremarkable. No cardiomegaly. No significant pericardial effusion. No significant coronary artery calcifications. Mediastinum: Wall thickening of the esophagus, correlate for need for upper GI endoscopy. Bones/joints: Unremarkable. No acute fracture. No dislocation. Soft tissues: Unremarkable. Vasculature: Unremarkable. No thoracic aortic aneurysm. Lymph nodes: Unremarkable. No enlarged lymph nodes. Liver: Hepatic steatosis. IMPRESSION: 1. Wall thickening of the esophagus, correlate for need for upper GI endoscopy. 2. Hepatic steatosis.
--- NOTE | 2024-04-28 03:55 | CT ---
EXAM: CT Neck With Intravenous Contrast CLINICAL HISTORY: ITS.REASON CT Reason: dysphagia s/p swallowing steak, vomit blood TECHNIQUE: Axial computed tomography images of the neck with intravenous contrast. CTDI is 8.3 mGy and DLP is 255.6 mGy-cm. This CT exam was performed using one or more of the following dose reduction techniques: automated exposure control, adjustment of the mA and/or kV according to patient size, and/or use of iterative reconstruction technique. COMPARISON: No relevant prior studies available. FINDINGS: Tonsils: tonsillar enlargement. Larynx: Epiglottis is unremarkable. Airway: Aerodigestive tract is patent. Bones: No acute fracture. Upper lungs: Clear. Upper esophagus unremarkable IMPRESSION: No acute findings.
[2024-04-28] MEDS: LIDOCAINE VISCOUS 2% 15 ML CUP PO ONE (05:32)
[2024-04-28] MEDS: MAG HYDROX/AL HYDROX/SIMETH 30 ML CUP PO STA (05:32)
[2024-04-28] MEDS: ACETAMINOPHEN ORAL SUSP 160 MG/5 ML CUP PO ONE (05:33)
[2024-04-28 05:44] VITALS: BP 147/94; PULSE 80; RESP 16
== END 2024-04-28 05:37 | disposition home or self-care (01) ==
LOC: EC 23:48
DX: T18.108A Unspecified foreign body in esophagus causing other injury, initial encounter (principal); K20.0 Eosinophilic esophagitis; K92.0 Hematemesis; Z88.8 Allergy status to other drugs, medicaments and biological substances; Z87.891 Personal history of nicotine dependence; W44.F3XA Food entering into or through a natural orifice, initial encounter
CPT/HCPCS: 36415; 94640; 80053; 85025; 85610; 85730; 70491; 71260; 99284; 96374; 96375 ×2; J2270; J2405; Q9967; J2470